=== PATIENT | female | born 1995 | race Caucasian/White ===

== ENCOUNTER 2024-06-24 17:07 | Outpatient (CLI) | payer MEDICAID ==
[2024-06-24 18:05] VITALS: BP 105/65; PULSE 71; RESP 18; TEMP 98.1
--- NOTE | 2024-06-25 11:48 | P.MSEPDOC ---
Presenting Problems - Arrival Data Date of Arrival on Unit: 06/24/24 Time of Arrival on Unit: 17:07 Mode of Transport: Wheelchair - Complaint OB-Reason for Admission/Chief Complaint: Dizziness Medical History - Information : 2 Para: 1 Term: 0 : 1 - Gestational Age Gestational Age by MICHAEL (wks/days): 22 Weeks and 5 Days - History Complications: Prior Comment: prior IOL for low amniotic fluid Review of Systems - Review of Systems Constitutional: No problems Breast: No problems ENT: No problems Cardiovascular: No problems Respiratory: No problems Gastrointestinal: No problems Genitourinary: No problems Musculoskeletal: No problems Neurological: Dizziness Skin: No problems Vital Signs - Temperature Temperature: 98.1 F Temperature Source: Temporal Artery Scan - Pulse Right Pulse Oximetery Pulse Rate: 71 Pulse Assessment Method: Pulse Oximetry - Respirations Respiratory Rate: 18 Oxygen Delivery Method: Room Air O2 Sat by Pulse Oximetry: 97 - Blood Pressure Right Arm Blood Pressure: 105/65 Blood Pressure Mean: 78 Blood Pressure Source: Automatic Cuff Physician Notification - Physician Notified Physician Notified Date: 06/24/24 Physician Notified Time: 17:38 Physician: Germain Hess Order Received: Yes Maternal Triage Index - Maternal Triage Index Presenting for scheduled procedure w/no complaint: No - Stat/Priority 1 Stat Priority 1: No - Urgent/Priority 2 Urgent Priority 2: No - Prompt/Priority 3 Prompt Priority 3: No - Non-Urgent/Priority 4 Non-Urgent Priority 4: Yes Criteria Met for Priority 4: dizziness Disposition - Disposition OB Disposition: Discharge to home Discharge Date: 06/24/24 Discharge Time: 17:50 I agree with the RN Medical Screening Exam: Yes Physician's MSE Comment: I have neither seen nor examined the patient. Case reviewed; plan agreed upon as documented in EMR&OBIX.: Yes Diagnosis: RELATED CONDITIONS, UNSPECIFIED, SECOND TRIMESTER
== END 2024-06-24 17:50 | disposition home or self-care (01) ==
LOC: FBPOP 17:07
PROVIDERS: ATTEND Obstetrics & Gynecology
DX: O26.892 Other specified pregnancy related conditions, second trimester (principal); R42 Dizziness and giddiness; Z88.0 Allergy status to penicillin; Z3A.22 22 weeks gestation of pregnancy
CPT/HCPCS: 99213